=== PATIENT | female | born 1945 | race American Indian/Alaskan Native ===

== ENCOUNTER 2019-05-01 11:55 | Day surgery (SDC) | payer MEDICARE ==
[2019-05-01] MEDS ORDERED: fentaNYL 100 MCG/2 ML INJ IV PRN (12:19)
[2019-05-01] MEDS ORDERED: ONDANSETRON 4 MG/2 ML INJ IV PRN (12:19)
--- NOTE | 2019-05-01 12:21 | Anesthesia Day of Surgery ---
Anesthesia Day of Surgery - Day of Surgery Patient Examined: Yes Patient H&P Reviewed: Yes Patient is NPO: Yes
--- NOTE | 2019-05-01 12:23 | Anesthesia Consultation ---
Anesthesia Consult and Med Hx Date of service: 05/01/19 - Pulmonary Hx Smoking: No Hx Sleep Apnea: No (REGINO PRE SCREEN LOW RISK) - Cardiovascular System Hx Hypertension: No (States can climb two flights of stairs) - Central Nervous System Hx Psychiatric Problems: Yes (Depression) - Other Systems Hx Cancer: No - Additional Comments Anesthesia Medical History Comments: PONV
[2019-05-01] MEDS ORDERED: ceFAZolin/STERILE WATER 2 GM/20 ML SYRINGE IV NR (12:50)
[2019-05-01] MEDS ORDERED: LACTATED RINGERS 1,000 ML IV SCH (13:00)
[2019-05-01] MEDS ORDERED: MIDAZOLAM 2 MG/2 ML INJ IV NR (13:00)
[2019-05-01] MEDS ORDERED: dexAMETHasone 20 MG/5 ML VIAL ONE (14:20)
[2019-05-01] MEDS ORDERED: LIDOCAINE MPF (2%) 20 MG/1 ML VIAL 5 ML ONE (14:20)
[2019-05-01] MEDS ORDERED: ONDANSETRON 4 MG/2 ML INJ ONE (14:20)
[2019-05-01] MEDS ORDERED: fentaNYL 100 MCG/2 ML INJ ONE (14:20)
[2019-05-01] MEDS ORDERED: PROPOFOL 200 MG/20 ML VIAL IV ONE (14:20)
[2019-05-01] MEDS ORDERED: WATER FOR IRRIG STERILE 2000 ML IR ONE (15:32)
--- NOTE | 2019-05-01 15:50 | Post Operative Note ---
Date of procedure: 05/01/19 Pre-op diagnosis: bilat stones Post-op diagnosis: same Findings: renal pelvic stones rk Procedure: cysto ureteroscopy rpg laser stent Anesthesia: GETA Surgeon: SYLWIA HERNANDEZ Estimated blood loss: none Pathology: none Condition: stable Disposition: PACU
--- NOTE | 2019-05-01 15:51 | Discharge Summary ---
Short Stay Discharge Plan Activity: other (no straining ) Weight Bearing Status: Full Weight Bearing Diet: low fat, low cholesterol, low salt Special Instructions: other (inc fluids ) Durable Medical Equipment Needed Upon Discharge: other (j stent ) Follow up with: CHARLIE COOK MD [Primary Care Provider] - 7 Days SYLWIA HERNANDEZ MD [Staff Physician] - 7 Days
[2019-05-01 17:32] VITALS: BP 163/88
--- NOTE | 2019-05-01 18:04 | Fluoroscopy Report ---
INTRAOPERATIVE FLUOROSCOPY: INDICATION / CLINICAL INFORMATION: RT KIDNEY STONES. TECHNIQUE: Intraoperative spot images were obtained during the procedure. FINDINGS: Intraoperative spot images show nephrolithiasis on the left and right. There is injection of the righ t ureter and subsequent placement of a double-J ureteral stent on the right. Fluoroscopy Time: 3 minutes. Fluoroscopy Images: 7. Signer Name: Justino Crooks MD Signed: 05/01/2019 5:59 PM Workstation Name: [id number]
--- NOTE | 2019-05-01 18:15 | Post Anesthesia Evaluation ---
- Post Anesthesia Evaluation Patient Participated: Yes Airway Patent: Yes Stable Respiratory Function: Yes Nausea/Vomiting: No Temp > 96.8F: Yes Pain Manageable: Yes Adequeate Hydration: Yes Anesthesia Complications: No Block Receding Appropriately: Not Applicable Patient on Ventilator: No
--- NOTE | 2019-05-01 18:42 | Operative Report ---
PREOPERATIVE DIAGNOSES: Bilateral renal stones, right renal pelvic stone. POSTOPERATIVE DIAGNOSES: Bilateral renal stones, right renal pelvic stone with previous ESWL that failed to resolve the problem. PROCEDURES: Cystoscopy, right retrograde, right ureteroscopy with laser of large number of stones and multiple calices, double-J stent. SURGEON: Dr. Ratliff. ANESTHESIA: General. FINDINGS: This is a woman who had at least 4-5 lithotripsies. She came to me with a renal pelvic stone, intermittent right flank pain. She now presents for treatment. DESCRIPTION OF PROCEDURE: The patient was brought to the operating room and placed on the operating table. Following induction of anesthesia, placed in the lithotomy position, prepped and draped in usual sterile fashion. She had a large cystocele. Retrograde showed the stone in the renal pelvis and stones throughout the calices bilaterally. At this point, a wire coiled in the kidney. The ureteral access sheath easily went up to the kidney. Ureteroscopy showed the stones, laser at 10-12 edgar were carried out. The stones were broken into many small pieces. The most lower pole stone and in the nimesh was not accessed but all the other stones were broken down. The patient tolerated the procedure well and brought to recovery in stable condition. Double-J stent 7-Divehi coiled in the kidney and bladder. JOB# [id number] BRADLEY/GRAZYNA
== END 2019-05-01 17:50 | disposition home or self-care (01) ==
LOC: OR 11:55
PROVIDERS: ATTEND Urology
DX: N20.0 Calculus of kidney (principal); N81.10 Cystocele, unspecified; E78.00 Pure hypercholesterolemia, unspecified; F32.9 Major depressive disorder, single episode, unspecified; Z98.890 Other specified postprocedural states; Z79.899 Other long term (current) drug therapy
CPT/HCPCS: 52356; 74420; A4217; C1726; C1758; C1769; C2617; J0690; J1100; J2250; J2405; J2704; J3010; J7120; Q9967

== ENCOUNTER 2019-05-07 05:42 | Day surgery (SDC) | payer MEDICARE ==
[~2019-05-07 05:42] MED LIST: LACTATED RINGERS 1,000 ML IV SCH
[2019-05-07] MEDS ORDERED: BACTERIOSTATIC SODIUM CHLORIDE 0.9% 30 ML VIAL INFILTRATI ONE (06:46)
--- NOTE | 2019-05-07 07:22 | Anesthesia Day of Surgery ---
Anesthesia Day of Surgery - Day of Surgery Patient Examined: Yes Patient H&P Reviewed: Yes Patient is NPO: Yes
--- NOTE | 2019-05-07 07:22 | Anesthesia Consultation ---
Anesthesia Consult and Med Hx Date of service: 05/07/19 - Airway Anesthetic Teeth Evaluation: Poor ROM Head & Neck: Adequate Mental/Hyoid Distance: Adequate Mallampati Class: Class II Intubation Access Assessment: Good - Pulmonary Exam CTA: Yes - Cardiac Exam Cardiac Exam: RRR - Pre-Operative Health Status ASA Pre-Surgery Classification: ASA2 Proposed Anesthetic Plan: General - Pulmonary Hx Smoking: No Hx Sleep Apnea: No (REGINO PRE SCREEN LOW RISK) - Cardiovascular System Hx Hypertension: No (States can climb two flights of stairs) - Central Nervous System Hx Psychiatric Problems: Yes (Depression) - Other Systems Hx Cancer: No
[2019-05-07] MEDS ORDERED: METOCLOPRAMIDE 10 MG/2 ML INJ IV PRN (07:24)
[2019-05-07] MEDS ORDERED: SUCCINYLCHOLINE CHLORIDE 200 MG/10 ML INJ MDV ONE (07:35)
[2019-05-07] MEDS ORDERED: PROPOFOL 200 MG/20 ML VIAL IV ONE (07:35)
[2019-05-07] MEDS ORDERED: dexAMETHasone 20 MG/5 ML VIAL ONE (07:35)
[2019-05-07] MEDS ORDERED: fentaNYL 100 MCG/2 ML INJ ONE (07:35)
[2019-05-07] MEDS ORDERED: LIDOCAINE MPF (2%) 20 MG/1 ML VIAL 5 ML ONE (07:35)
[2019-05-07] MEDS ORDERED: ONDANSETRON 4 MG/2 ML INJ IV NR (08:00)
[2019-05-07] MEDS ORDERED: MIDAZOLAM 2 MG/2 ML INJ IV NR (08:00)
[2019-05-07] MEDS ORDERED: WATER FOR IRRIG STERILE 2000 ML IR ONE (08:40)
--- NOTE | 2019-05-07 08:45 | Post Operative Note ---
Date of procedure: 05/07/19 Pre-op diagnosis: migrated stent Post-op diagnosis: same Findings: as above Procedure: stent removal Anesthesia: GETA Surgeon: SYLWIA HERNANDEZ Estimated blood loss: none Pathology: none Condition: stable Disposition: PACU
--- NOTE | 2019-05-07 08:46 | Discharge Summary ---
Short Stay Discharge Plan Activity: other (no straining ) Weight Bearing Status: Full Weight Bearing Diet: low fat, low cholesterol, low salt Special Instructions: other (inc fluids) Follow up with: CHARLIE COOK MD [Primary Care Provider] - 7 Days SYLWIA HERNANDEZ MD [Staff Physician] - 7 Days
--- NOTE | 2019-05-07 09:02 | Operative Report ---
PREOPERATIVE DIAGNOSIS: Renal stones bilaterally. POSTOPERATIVE DIAGNOSIS: Renal stones bilaterally with migrated stent in the distal ureter. PROCEDURE: Cystoscopy, distal ureteroscopy with removal of stent. SURGEON: Dr. Ratliff. ANESTHESIA: General. FINDINGS: This is a patient who had a renal pelvic stone and ureteral stone, which was treated about 2 weeks ago. KUB showed the stent migrated. She had a prominent cystocele. I looked back at the x-ray and it was coiled in the bladder, but now it moved up just above at the level of the intramural ureter. She now presents for treatment. DESCRIPTION OF PROCEDURE: The patient was brought to the operating room and placed on the operating table. Following induction of anesthesia, she was prepped and draped in usual sterile fashion. A wire had coiled in the kidney and ureteroscopy just at the opening showed the stent, which was grasped with a 3-prong 5-Ugandan grasper. The stent was removed. We decided there was no edema. We removed the wire. The patient tolerated the procedure well. Family notified. No stent was required and she was brought to recovery in stable condition. JOB# [id number] BRADLEY/GRAZYNA
--- NOTE | 2019-05-07 09:24 | XRay Report ---
ABDOMEN 1 VIEW(S) INDICATION / CLINICAL INFORMATION: RT CALCULUS OF URETER. COMPARISON: 05/01/2019 FINDINGS: 19 seconds of fluoroscopy time was provided by radiology during a urologic procedure. 3 fluoroscopic images of the abdomen are presented demonstrating removal of a right ureteral stent. A right ureteral stone was also removed with grasper per the operative notes. Please correlate with the procedural re port as needed. Signer Name: Lauro Sharp Jr, MD Signed: 05/07/2019 9:20 AM Workstation Name: [id number]
[2019-05-07] MEDS ORDERED: hydrALAZINE 20 MG/1 ML INJ IV ONE (10:00)
[2019-05-07 10:49] VITALS: BP 154/81
== END 2019-05-07 10:45 | disposition home or self-care (01) ==
LOC: OR 05:42
PROVIDERS: ATTEND Urology
DX: N20.2 Calculus of kidney with calculus of ureter (principal); E78.00 Pure hypercholesterolemia, unspecified; I10 Essential (primary) hypertension; F32.9 Major depressive disorder, single episode, unspecified; Z98.890 Other specified postprocedural states; Z79.899 Other long term (current) drug therapy
CPT/HCPCS: 52310; 74018; A4217; J0330; J0360; J1100; J2250; J2704; J2765; J3010; J7120; C1758; C1769; J2405